=== PATIENT | male | born 1970 | race American Indian/Alaskan Native ===

== ENCOUNTER 2017-10-12 09:31 | Outpatient (CLI) | payer OTHER | END 2017-10-12 15:00 | disposition home or self-care (01) | LOC: SONOGRAMA 09:31 | DX: R19.8 Other specified symptoms and signs involving the digestive system and abdomen (principal); E66.9 Obesity, unspecified ==

== ENCOUNTER → 2017-10-18 | Outpatient (CLI) | payer OTHER | END | disposition home or self-care (01) | LOC: TOM 11:00 | DX: R51 Headache (principal) ==

== ENCOUNTER 2018-04-26 14:00 | Outpatient (CLI) | payer OTHER | END 2018-04-26 14:32 | disposition home or self-care (01) | LOC: RAD 14:00 | DX: M17.11 Unilateral primary osteoarthritis, right knee (principal); M25.811 Other specified joint disorders, right shoulder ==

== ENCOUNTER 2018-05-02 11:11 | Outpatient (CLI) | payer OTHER | END 2018-05-02 16:47 | disposition home or self-care (01) | LOC: MRI 11:11 | DX: M54.5 Low back pain (principal); E66.8 Other obesity | CPT/HCPCS: 72148 ==

== ENCOUNTER 2018-05-29 13:32 | Outpatient (CLI) | payer OTHER | END 2018-05-29 13:35 | disposition home or self-care (01) | LOC: SONOGRAMA 13:32 | DX: M25.511 Pain in right shoulder (principal); M75.41 Impingement syndrome of right shoulder ==

== ENCOUNTER 2018-07-03 09:31 | Outpatient (CLI) | payer OTHER | END 2018-07-03 09:34 | disposition home or self-care (01) | LOC: SONOGRAMA 09:31 | DX: E04.8 Other specified nontoxic goiter (principal) ==

== ENCOUNTER 2018-10-22 07:51 | Outpatient (CLI) | payer OTHER | END 2018-10-22 08:00 | disposition home or self-care (01) | LOC: NUCLEAR 07:51 | DX: E21.3 Hyperparathyroidism, unspecified (principal) | CPT/HCPCS: 78013; A9512 ==

== ENCOUNTER 2018-10-24 11:24 | Outpatient (CLI) | payer OTHER ==
[~2018-10-24] VITALS: Ht 167.6 cm; Wt 83.9 kg
== END 2018-10-24 11:40 | disposition home or self-care (01) ==
LOC: OFIC 805 11:24
DX: D35.1 Benign neoplasm of parathyroid gland (principal); R22.1 Localized swelling, mass and lump, neck; R13.19 Other dysphagia; J34.2 Deviated nasal septum

== ENCOUNTER 2019-08-17 07:53 | Outpatient (CLI) | payer OTHER | END 2019-08-17 10:46 | disposition home or self-care (01) | LOC: SONOGRAMA 07:53 | DX: R10.84 Generalized abdominal pain (principal); M17.11 Unilateral primary osteoarthritis, right knee; M25.819 Other specified joint disorders, unspecified shoulder; M54.5 Low back pain; E66.8 Other obesity; Z00.01 Encounter for general adult medical examination with abnormal findings ==

== ENCOUNTER 2020-12-11 07:57 | Outpatient (CLI) | payer OTHER | END 2020-12-11 08:12 | disposition home or self-care (01) | LOC: SONOGRAMA 07:57 | PROVIDERS: ATTEND Specialist | DX: K76.0 Fatty (change of) liver, not elsewhere classified (principal); R10.84 Generalized abdominal pain; Z00.01 Encounter for general adult medical examination with abnormal findings; M17.11 Unilateral primary osteoarthritis, right knee; M25.819 Other specified joint disorders, unspecified shoulder; M54.5 Low back pain; E04.8 Other specified nontoxic goiter ==

== ENCOUNTER 2021-01-04 14:41 | Outpatient (CLI) | payer OTHER | END 2021-01-04 14:58 | disposition home or self-care (01) | LOC: RAD 14:41 | PROVIDERS: ATTEND Otolaryngology | DX: Z01.818 Encounter for other preprocedural examination (principal) ==

== ENCOUNTER 2023-04-28 15:29 | Outpatient (CLI) | payer OTHER | END 2023-04-28 15:37 | disposition home or self-care (01) | LOC: RAD 15:29 | PROVIDERS: ATTEND Specialist | DX: R10.9 Unspecified abdominal pain (principal); E04.1 Nontoxic single thyroid nodule; E08.9 Diabetes mellitus due to underlying condition without complications; E03.8 Other specified hypothyroidism; M17.11 Unilateral primary osteoarthritis, right knee; M25.819 Other specified joint disorders, unspecified shoulder; E66.9 Obesity, unspecified ==

== ENCOUNTER 2023-05-01 11:04 | Outpatient (CLI) | payer OTHER | END 2023-05-01 11:21 | disposition home or self-care (01) | LOC: SONOGRAMA 11:04 | PROVIDERS: ATTEND Specialist | DX: Z00.01 Encounter for general adult medical examination with abnormal findings (principal); R10.9 Unspecified abdominal pain; M17.11 Unilateral primary osteoarthritis, right knee; M25.819 Other specified joint disorders, unspecified shoulder; M54.59 Other low back pain; E66.9 Obesity, unspecified ==

== ENCOUNTER 2024-11-18 03:39 | Emergency (ER) | payer OTHER ==
[~2024-11-18] VITALS: Ht 167.6 cm; Wt 83.9 kg
[2024-11-18] MEDS ORDERED: COZAAR25 MG PO (04:02)
[2024-11-18] MEDS ORDERED: METFORMIN HCL500 M3 PO (04:03)
[2024-11-18] MEDS ORDERED: EZALLOR SPRINKLE5 MG PO (04:03)
[2024-11-18] MEDS ORDERED: GLIPIZIDE XL2.5 MG PO (04:03)
[2024-11-18] MEDS ORDERED: AMLODIPINE-OLM1 EAC2 PO (04:03)
[2024-11-18] MEDS ORDERED: ASPIRIN 325 MG TABLET.EC PO STA (04:33)
[2024-11-18] MEDS ORDERED: FAMOTIDINE/PF 20 MG/2 ML VIAL IV PUSH STA (04:33)
[2024-11-18] MEDS ORDERED: SUCRALFATE 1 G TABLET PO STA (04:34)
[2024-11-18] MEDS ORDERED: 0.9 % SODIUM CHLORIDE 1,000 ML IV ONE (04:45)
[2024-11-18] MEDS ORDERED: FAMOTIDINE/PF 20 MG/2 ML VIAL ONE (05:14)
[2024-11-18 05:22] LABS: HEMATOCRIT 41.3 % (39.0-48.0); HEMOGLOBIN 13.9 g/dL (13-16.00); MEAN CELL VOLUME 84.6 fL (80.0-100.00); MEAN CORPUSCULAR HEMOGLOBIN 28.4 pg (27.00-32.0); MEAN CORPUSCULAR HGB CONC 33.5 g/dl (32.0-36.0); PLATELET COUNT 261 K/uL (150-450); RED BLOOD COUNT 4.89 M/uL (4.00-6.00); RED CELL DISTRIBUTION WIDTH 13.8 % (11.5-14.5)
[2024-11-18 05:28] LABS: INR 1.01; PARTIAL THROMBOPLASTIN TIME 25.1 SECONDS (22.0-34.0)
[2024-11-18 05:39] LABS: proBNP < 5 pg/mL (0-39)
[2024-11-18 05:43] LABS: ALBUMIN 4.2 gm/dL (3.4-5.0); BILIRUBIN TOTAL 0.52 mg/dL (0.3-1.2); CALCIUM 9.5 mg/dL (8.5-10.1); CREATININE SERUM 1.2 mg/dL (0.70-1.30); GFR 63.09; POTASSIUM 3.47 mEq/L (3.5-5.1); TOTAL PROTEIN 7.2 gm/dL (6.4-8.2)
[2024-11-18 07:40] LABS: PH,URINE 7.5 (5.0-8.0); URINE APPEARANCE Clear; URINE BILIRRUBIN Negative (NEGATIVE); URINE BLOOD Negative; URINE COLOR Yellow; URINE GLUCOSE Negative (NEGATIVE); URINE KETONE Negative (NEGATIVE); URINE LEUKOCYTE Negative; URINE NITRATE Negative; URINE PROTEIN Negative (NEGATIVE)
[2024-11-18] MEDS ORDERED: PEPCID40 MG PO (07:43)
[2024-11-18] MEDS ORDERED: PROTONIX40 MG PO (07:43)
[2024-11-18 07:45] LABS: URINE BACTERIA 0 uL (0.0-1933); URINE EPITHELIAL CELLS 0.3 uL (0.0-38.8); URINE RBC 1.1 uL (0.0-20.8); URINE WBC 0.1 uL (0.0-23.2)
== END 2024-11-18 08:10 | disposition home or self-care (01) ==
LOC: ER 03:40
PROVIDERS: General Practice
DX: K21.9 Gastro-esophageal reflux disease without esophagitis (principal); R07.89 Other chest pain; E11.9 Type 2 diabetes mellitus without complications; Z79.84 Long term (current) use of oral hypoglycemic drugs; I10 Essential (primary) hypertension

== ENCOUNTER → 2025-06-28 | Emergency (ER) | payer OTHER ==
[~2025-06-28] VITALS: Ht 167.6 cm; Wt 84.8 kg
[~2025-06-28] MED LIST: AMLODIPINE-OLM1 EAC2 PO; COZAAR25 MG PO; EZALLOR SPRINKLE5 MG PO; FAMOTIDINE/PF 20 MG/2 ML VIAL ONE; FAMOtidine 10 MG/ML (4ML VIAL) IV PUSH ONE; GLIPIZIDE XL2.5 MG PO; KETOROLAC TROMETHAMINE 30 MG VIAL IM ONE; KETOROLAC TROMETHAMINE 30 MG VIAL ONE; LOPERAMIDE HCL 2 MG CAPSULE PO ONE; METFORMIN HCL500 M3 PO; MORPHINE SULFATE 2 MG/ML SYRINGE IV ONE; PEPCID40 MG PO; PROTONIX40 MG PO
[2025-06-28 17:58] LABS: BASO % 0.6 % (0.1-1.2); EOS # 0.13 (0.04-0.54); EOS % 2.1 % (0.7-7.0); LYMPH # 2.19 (1.18-3.74); LYMPH % 35.5 % (19.3-53.1); MEAN PLATELET VOLUME 10.20 fl (9.4-12.4); MONO # 0.49 (0.24-0.82); MONO % 7.9 % (4.7-12.5); NEUT # 3.30 (1.56-6.13); NEUT % 53.6 % (34.0-71.1); RED CELL DISTRIBUTION WIDTH 13.4 % (11.6-14.4)
[2025-06-28 18:22] LABS: ALT/SGPT 41.0 U/L (12-78); AST/SGOT 27.0 U/L (15-37); BILIRUBIN TOTAL 0.54 mg/dL (0.3-1.2); BUN CREA RATIO 13.0 (7.0-25.0); CKMB 1.3 NG/ML (0.5-3.6); CREATININE SERUM 1.22 mg/dL (0.70-1.30); GFR 61.9; GLOBULINA 3.1 G/DL (2.4-3.5); GLUCOSE FASTING 132.0 mg/dL (65-100); OSMOLALITY SERUM 286.0 MOSM/KG (275-295)
== END | disposition home or self-care (01) ==
LOC: ER 14:20
PROVIDERS: General Practice
DX: R07.9 Chest pain, unspecified (principal); I10 Essential (primary) hypertension; J45.909 Unspecified asthma, uncomplicated; E11.9 Type 2 diabetes mellitus without complications; Z79.84 Long term (current) use of oral hypoglycemic drugs; K21.9 Gastro-esophageal reflux disease without esophagitis